=== PATIENT | male | born 1955 | race Caucasian/White ===

== ENCOUNTER 2020-11-25 07:58 | Emergency (ER) | payer MEDICARE, SELFPAY ==
[2020-11-25 08:21] LABS: Glucose, Whole Blood 292 mg/dL (60-115)
--- NOTE | 2020-11-25 08:21 | ED.CPR ---
HPI - CPR General Chief Complaint: Cardiac Arrest/CPR Stated Complaint: CARDIAC ARREST,ASYSTOLE,NO SHOCK ADVISED Time Seen by Provider: 11/25/20 08:21 Source: patient and EMS Mode of arrival: EMS Limitations: other (ongoing CPR) History of Present Illness HPI narrative: no bystander CPR MD complaint: found unresponsive (in bathroom on the floor) Onset (ago): minute(s) (30) Timing confirmed by: family member Place: home Bystander CPR performed: No AED applied by bystander/turning sander operator: Yes Shock advised: No Downtime before ACLS arrival (mins): 5 Initial findings in the field: unresponsive, agonal, no pulse and other rhythm (asytole) ROSC in the field: No Associated injuries: No Associated symptoms: other (had vomited this week and didn't feel well per family) Known history of: CAD and [place] Treatments prior to arrival: intubation, BMV, chest compressions, epinephrine mgs # (3) and spinal immobilization Related Data Allergies Allergy/AdvReac Type Severity Reaction Status Date / Time No Known Allergies Allergy Unverified 02/23/20 14:36 Review of Systems Review of Systems: ROS unable to be obtained due to obtunded and ongoing CPR Physical Exam Vital Signs: Appearance: ongoing CPR, obtunded, pale, severe distress Eyes: Pupils fixed and dilated ENT: no gag reflex, airway in place Neck: in collar CVS: no pulse felt, no cardiac activity, no heart sounds ongoing compressions Respiratory: No respiratory distress. Breath sounds normal. Abdomen: Soft and non rigid, small bruise noted on R side of abdomen Skin: Skin warm and cool. Pale. Extremities: No lower extremity edema. Neuro: no response to pain, no gag reflex, no motor response, fixed and dilated pupils Course Course Course Narrative: multiple epis, bagged, high quality chest compression, amio x 2, 3+ shocks for vfib initial asystole on arrival no ROSC with downtime 40 minutes time of 811am fixed and dilated pupils, no organized activity on cardiac bedside US, no pain response, no respirations, no corneal reflex Procedures Procedure Narrative Procedure Narrative: bedside cardiac US - no organized cardiac activity, no effusion MDM - Cardiac Arrest/CPR MDM Narrative Medical decision making narrative: 65 yo male recent illness with vomiting and not feeling well hx of CAD post [place] found down in bathroom - other than small bruise on abdomen doubt trauma was the cause, he had high quality CPR in the field as well as in the ED with asytole and vfib s/p multiple shocks epi and amiodarone no ROSC no organized cardiac activity on US fixed and dilated pupils after 40 to 45 minutes without ROSC resuscitative efforts deemed futile time of 811am, family notified Critical Care Time Critical Care Time Critical Care Time: Yes Total Critical Care Time: 15 Attestation: I attest to this time spent taking care of the patient Discharge Plan Discharge Clinical Impression: Cardiac arrest Patient Disposition:
--- NOTE | 2020-11-25 08:42 | PC.NURSE ---
PER DR MAKENNA HART OF 08:11 FAMILY REQUESTING MAJOR ASSEMBLY LINEMAN @[address] [facility] [place], [facility] NO [facility]SWER, MESSAGE LEFT TO CALL ER WHEN THEY GET THE MESSAGE @0838 CALL PLACED TO [facility]. NO ANSWER, MESSAGE LEFT TO CALL US BACK WHEN THEY GET THE MESSAGE
--- NOTE | 2020-11-25 09:04 | PC.NURSE ---
spoke with Asia at [facility], pt is a potentially accepted,
--- NOTE | 2020-11-25 11:42 | PC.NURSE ---
@11:[address] [facility]... FATHER HÉCTOR LINE [phone], NO ANSWER, MESSAGE LEFT
== END 2020-11-25 13:00 | disposition expired ==
LOC: HO.ED 08:29
PROVIDERS: Emergency Provider Emergency Medicine
DX: I46.9 Cardiac arrest, cause unspecified (principal); I25.10 Atherosclerotic heart disease of native coronary artery without angina pectoris; I25.2 Old myocardial infarction
CPT/HCPCS: 82947; 99282; 99285